=== PATIENT | male | born 1970 | race Caucasian/White ===

== ENCOUNTER 2016-12-19 21:46 | Emergency (ER) | payer OTHER ==
[2016-12-19 21:54] VITALS: BP 141/87; PULSE 108; RESP 18; TEMP 98.7
--- NOTE | 2016-12-19 22:09 | ED ---
Lower Extremity Injury HPI - General Chief Complaint: Extremity Injury, Lower Stated Complaint: ankle injury Time Seen by Provider: 12/19/16 22:02 Source: patient, RN notes reviewed Mode of arrival: ambulatory Limitations: no limitations - History of Present Illness Initial Comments: 46-year-old male presents emergency Department chief complaint left ankle pain. Patient states that he was lifting someone else and states that he felt his leg snap. Patient had 2 prior fractures to his left ankle. Patient states [facility] Patient states pain is very unbearable at this time. Patient states that he has no paresthesias. He has no proximal lower leg pain. Patient denies any other injuries at this time. - Related Data Previous Rx's Medication Instructions Recorded HYDROcodone/APAP 7.5-325MG [[place] 1 tab PO Q6HR PRN #20 tab 12/19/16 7.5-325] Allergies Allergy/AdvReac Type Severity Reaction Status Date / Time No Known Allergies Allergy Verified 12/19/16 21:53 Review of Systems ROS Statement: Those systems with pertinent positive or pertinent negative responses have been documented in the HPI. ROS Other: All systems not noted in ROS Statement are negative. Past Medical History Past Medical History: Hypertension History of Any Multi-Drug Resistant Organisms: None Reported Past Surgical History: No Surgical Hx Reported Past Psychological History: No Psychological Hx Reported Smoking Status: Current every day smoker Past Alcohol Use History: Occasional Past Drug Use History: None Reported General Exam Limitations: no limitations General appearance: alert, in no apparent distress Respiratory exam: Present: normal lung sounds bilaterally. Absent: respiratory distress, wheezes, rales, rhonchi, stridor Cardiovascular Exam: Present: regular rate, normal rhythm, normal heart sounds. Absent: systolic murmur, diastolic murmur, rubs, gallop, clicks Extremities exam: Present: other (Left lower extremity pedal pulses equal bilaterally Keppra for less than 2 seconds there is obvious deformity and moderate swelling to left ankle with severe tenderness there is no proximal tib- fib tenderness) Course Vital Signs 12/19/16 21:50 Temperature 98.7 F Pulse Rate 108 H Respiratory 18 Rate Blood Pressure 141/87 O2 Sat by Pulse 100 Oximetry Procedures - Orthopedic Splinting/Casting Injury #1 Side: left Lower Extremity Injury Location: ankle Lower Extremity Immobilizer: posterior splint (Short leg neurovascular intact before and after procedure) Other Orthopedic Equipment: crutches Medical Decision Making - Medical Decision Making 46-year-old male presented for left ankle injury. Patient has a left ankle fracture with mild disruption of the mortise. Patient is splinted and follow up with orthopedics. Return parameters discussed. Disposition Clinical Impression: Ankle fracture, left Disposition: HOME SELF-CARE Condition: Stable Instructions: Ankle Fracture (ED) Additional Instructions: Please return to the Emergency Department if symptoms worsen or any other concerns. Prescriptions: HYDROcodone/APAP 7.5-325MG [[place] 7.5-325] 1 tab PO Q6HR PRN #20 tab PRN Reason: Pain Referrals: Keren Carrasquillo MD [Primary Care Provider] - 1-2 days Jose Cabrera MD [Medical Doctor] - 1-2 days Time of Disposition: 22:43
--- NOTE | 2016-12-19 22:32 | XR ---
EXAM: XR Left Ankle Complete, 3 or More Views CLINICAL HISTORY: Reason: Pain/deformity TECHNIQUE: Frontal, lateral and oblique views of the left ankle. COMPARISON: None. FINDINGS: Bones/joints: Acute non-comminuted mildly inferomedially displaced fracture of the medial malleolus is seen. Acute non-comminuted mildly inferolaterally displaced fracture of the lateral malleolus/distal fibula is seen. The ankle mortise is not congruent. Likely small ankle joint effusion is noted. Soft tissues: Associated overlying soft tissue swelling is noted. IMPRESSION: Acute non-comminuted mildly displaced fractures involving the medial and lateral malleoli, as described above. Associated overlying soft tissue swelling. The ankle mortise is not congruent. Probable small ankle joint effusion.
[2016-12-19] MEDS ORDERED: HYDROcodone/APAP 7.5-325MG 1 EACH TAB PO ONE ×2 (22:40→22:41)
== END 2016-12-19 22:45 | disposition home or self-care (01) ==
LOC: EC 21:46
DX: S82.842A Displaced bimalleolar fracture of left lower leg, initial encounter for closed fracture (principal); F17.200 Nicotine dependence, unspecified, uncomplicated; X50.0XXA Overexertion from strenuous movement or load, initial encounter
CPT/HCPCS: 29515; 99283

== ENCOUNTER 2017-01-07 06:07 | Day surgery (SDC) | payer SELFPAY ==
[2017-01-04 13:17] VITALS: BMI 28.2
[~2017-01-07 06:07] MED LIST: DEXAMETHASONE SOD PHOSPHATE 10 MG/ML 1 ML VIAL IV ONE; LACTATED RINGERS 1,000 ML IV SCH; LIDOCAINE 1% 20 ML VIAL (10MG/ML) FOR IV START INTRADERMA PRN; MIDAZOLAM 2 MG/2 ML VIAL IV PRN; ONDANSETRON 4 MG/2 ML VIAL IVP ONE; SCOPOLAMINE 1.5MG/72HR PATCH TRANSDERM ONE; ceFAZolin 2 GM in SODIUM CHLORIDE 0.9% 100 ML IVPB ONE
[2017-01-07] MEDS ORDERED: ePHEDrine SULFATE/0.9% NACL/PF 50 MG/5 ML SYRINGE IV ONE (07:26)
[2017-01-07] MEDS ORDERED: PROPOFOL 10 MG/ML 20 ML VIAL IV ONE (07:26)
[2017-01-07] MEDS ORDERED: ePHEDrine 50 MG/ML 1 ML AMP ONE (07:26)
[2017-01-07] MEDS ORDERED: SUCCINYLCHOLINE CHLORIDE 100 MG/5 ML SYR IV ONE (07:26)
[2017-01-07] MEDS ORDERED: LIDOCAINE 1% INJ 10MG/ML (20 ML MDV) ONE (07:26)
[2017-01-07] MEDS ORDERED: fentaNYL (PF) 50 MCG/ML 2 ML AMP ONE (07:26)
[2017-01-07] MEDS ORDERED: HYDROmorphone (PF) 1 MG/ML ONE (07:26)
[2017-01-07] MEDS ORDERED: MIDAZOLAM 2 MG/2 ML VIAL ONE (07:26)
[2017-01-07] MEDS ORDERED: ceFAZolin 1,000 MG in SODIUM CHLORIDE 0.9% 1,000 ML IRRIGATION ONE (07:53)
[2017-01-07] MEDS ORDERED: LACTATED RINGERS 1,000 ML IV ONE (09:02)
[2017-01-07] MEDS: HYDROmorphone 1 MG/ML 1 ML SYRINGE IVP PRN ×2 (09:17→09:22)
[2017-01-07 09:22] VITALS: TEMP 97.3
--- NOTE | 2017-01-07 09:22 | FL ---
EXAMINATION TYPE: FL guidance operating room, XR ankle limited LT DATE OF EXAM: 01/07/2017 CLINICAL HISTORY: Left ankle bimalleolar fracture TECHNIQUE: Fluoroscopy. Limited intraoperative views left ankle. COMPARISON: None. FINDINGS: Fluoroscopic guidance was provided during open reduction internal fixation procedure perfo rmed by Dr. Cabrera. A total of 18 seconds of fluoroscopic time was utilized during the procedure a nd 4 spot intraoperative images are acquired. Intraoperative images acquired show placement lateral fixating plate through distal fibular fracture with old fracture deformity proximally redemonstrated and fixating screw through medial malleolus fra cture. Improved alignment is seen after reduction and fixation. IMPRESSION: As Above.
--- NOTE | 2017-01-07 09:26 | P.OP ---
Date of Procedure: 01/07/17 Preoperative Diagnosis: 1. Closed left bimalleolar ankle fracture 2. Current every day cigarette smoker Postoperative Diagnosis: Same Procedure(s) Performed: 1. Open reduction and internal fixation of left bimalleolar ankle fracture 2. Manual application of joint stress by physician for radiography Implants: Anesthesia: JEFFRYA Surgeon: Jose Cabrera Drum Loader And Unloader #1: Rubens Gonzalez Estimated Blood Loss (ml): 20 IV fluids (ml): 850 Pathology: none sent Condition: stable Disposition: PACU Indications for Procedure: The patient is a 46-year-old male with a medical history significant for smoking cigarettes. He sustained an isolated injury to his left ankle resulting in a bimalleolar ankle fracture. He previously had a high Marcus C fibula fracture managed nonoperatively by one of my partners. I met the patient in the office and when his swelling had resolved we discussed proceeding with surgery due to the unstable nature of his fracture. We discussed potential risks and complications of surgery including but not limited to risk of anesthesia, risk of superficial infection, risk of deep infection, risk of delayed wound healing, risk of wound necrosis, risk of damage to local sensory nerves resulting in temporary or permanent numbness, risk of intraoperative fracture, risk of postoperative fracture, risk of postoperative displacement requiring further surgery, risk of fracture nonunion , risk of fracture malunion, risk of chronic pain, risk of chronic swelling, risk of complication regional pain syndrome, risk of post hematocrit arthritis, risk of difficulty ambulating following surgery, risk of inability to regain preinjury level of function, risk of postoperative medical problems including DVT and fatal pulmonary embolus, risk of generalized to satisfaction with surgery, and possibly loss of life or limb. The patient understands that while these are the most common complications other less common complications are possible. He also understands that he is at a higher risk of having a complication due to his current smoking. He gave both verbal and written consent to go forward with surgery in the office. Operative Findings: Description of Procedure: The patient was identified in preoperative holding and the correct left leg was marked with my initials. I reviewed the consent form with the patient and his mom. All of their questions were answered. The patient was then brought back to the operating room by anesthesia. He was positioned on the operating room table and a general anesthetic and preoperative antibiotics were administered. A tourniquet was applied to the proximal aspect of the left thigh. A bump was placed under his left buttock internally rotating the leg. The right leg was secured to the table with foam tape and foam. A ramp was placed under the left leg. The patient's left leg was then prepped and draped in the standard sterile fashion. Prior to starting surgery timeout was performed identifying the correct patient, operative extremity, and procedure. The patient's leg was then elevated, exsanguinated with an Esmarch bandage, and the tourniquet was inflated to 250 mmHg. I began by outlining an incision over the lateral aspect of the distal fibula. Skin incision was made a 15 blade scalpel and dissection was carried down carefully through the subcutaneous tissue to the periosteum overlying the distal fibula and fascia over the peroneal musculature. This was incised longitudinally in line with the skin incision. The fracture was exposed. Consolidating hematoma and early callus was debrided. The fracture was then gently reduced with longitudinal traction and rotation. Once the fracture appeared to be out to length it was clamped with a uhymq-ce-rtwqu reduction clamp. Medically the fracture appeared to be anatomically reduced. C-arm fluoroscopy was brought in to verify reduction of the fracture. The fibula appeared to be out to length and the medial clear space was reduced. I then placed a 6-hole one third tubular plate along the posterior lateral border of the fibula to use as an anti-glide device. A 3.5 screw was placed in the third hole of the plate just proximal to the fracture bring the plate down to bone. A second 3.5 mm screw was placed in the first hole of the plate. I then placed a third 3.5 screw in the sixth hole of the plate capturing the distal fragment. I then placed a 2.7 mm lag screw through the fifth hole of the plate. A 2.7 mm drill bit was used to create a gliding hole in the posterior cortex the distal fragment and a 2.0 mm drill bit was used to create a threaded hole in the anterior cortex of the proximal fragment. A fully threaded 2.7 mm screw was placed through the fifth hole of the plate generating excellent compression across the fracture. Fluoroscopy was then brought in to verify the reduction of the fracture and placement of the hardware. Clinically the plate sat nicely on the posterior border of the fibula. Attention was then turned to the medial malleolus. A longitudinal incision centered over the medial malleolus was made with a skin marker. Skin incision was made a 15 blade scalpel and dissection was carried down carefully to subcutaneous tissue. The fracture was identified and the periosteum was elevated. Early callus was debrided. I was able to visualize the medial aspect of the joint and there was no obvious damage to the talar articular cartilage or loose bodies. A 2.0 mm drill bit was used to create a hole in the distal metaphysis of the tibia just proximal to the fracture. Using a point-to- point reduction clamp 1 marybel was placed in this hole and the second marybel was placed at the tip of the medial malleolus fragment. I gently reduced the medial malleolus fragment. The fragment was very small and of poor bone quality. Due to the size of the fragment I was only able to place a single 2.7 mm screw. A 2.0 mm drill bit was used to create a track for a fully threaded 2.7 mm screw measuring 55 mm in length. Fluoroscopy was then brought in to take final x-ray shots. A mortise view and lateral view showed the talus anatomically reduced within the ankle mortise. A manual external rotation stress x-ray showed no widening of the medial clear space or syndesmosis. I interpreted this as a stable ankle not requiring a syndesmotic screw. Both wounds were then copiously irrigated. The deep fascia over the fibula was closed with a running 2-0 Vicryl. The subcu was closed with 2-0 Vicryl. The skin was closed using 3-0 nylon Allgower modification of the Donati stitch. The medial incision was closed with 2-0 Vicryl in the subcutaneous tissue and 3- 0 nylon horizontal mattress stitches for the skin. I verified that all instrument, sponge, and sharp counts were correct. A sterile dressing consisting of quarter inch Brown stretchy Steri-Strips, Betadine soaked Adaptic , and 4 x 4's applied. The leg was wrapped with a web roll. The drapes were taken down and a very well-padded bulky Delgado type splint was applied. The patient was then awoken from his anesthetic, transferred from the operating room table to the [facility], and brought to PACU having marybel of the procedure well. Rubens Tabares PA-C was required is a skilled library assistant for patient positioning, surgical exposure, fracture reduction, placement of hardware, closure of surgical wound, and application of splint. Plan: The patient is going to discharge home as an outpatient. He is to remain strictly nonweightbearing on his left leg. He is to keep his splint on at all times. He is given a prescription for pain medication. He was also given a prescription for aspirin twice a day to take for DVT prophylaxis. I also recommended early mobilization. Weeks for splint removal, likely suture removal , and x-rays of the left ankle.
[2017-01-07] MEDS: MEPERIDINE 50 MG/ML SYRINGE IVP ONE ×2 (09:31→10:08)
[2017-01-07 09:34] VITALS: RESP 16
[2017-01-07] MEDS ORDERED: HYDROcodone/APAP 10-325MG 1 EACH TAB PO ONE (10:40)
[2017-01-07 11:05] VITALS: BP 130/90; PULSE 120
== END 2017-01-07 11:21 | disposition home or self-care (01) ==
LOC: OR 06:07
PROVIDERS: ATTEND Orthopaedic Surgery
DX: S82.842A Displaced bimalleolar fracture of left lower leg, initial encounter for closed fracture (principal); X58.XXXA Exposure to other specified factors, initial encounter; I10 Essential (primary) hypertension; F17.210 Nicotine dependence, cigarettes, uncomplicated; Z87.09 Personal history of other diseases of the respiratory system; Z79.82 Long term (current) use of aspirin; Z79.891 Long term (current) use of opiate analgesic; Z79.899 Other long term (current) drug therapy
CPT/HCPCS: 73600; 27814; C1713; J2250; J1100; J2175; J0690 ×2; J2405; J2001; J3010; J1170; J0330; J2704

== ENCOUNTER 2019-10-16 08:13 | Emergency (ER) | payer BC ==
[2019-10-16 08:18] VITALS: BP 160/93; PULSE 116; RESP 18; TEMP 98.1
--- NOTE | 2019-10-16 08:30 | ED ---
General Adult HPI - General Chief complaint: Extremity Injury, Upper Stated complaint: Right arm injury Time Seen by Provider: 10/16/19 08:18 Source: patient, RN notes reviewed, old records reviewed Mode of arrival: ambulatory Limitations: no limitations - History of Present Illness Initial comments: Patient is a 49-year-old male who presents emergency department today with right shoulder and clavicle pain and right wrist pain. Patient reports that he fell down the stairs on Wednesday. Patient complains of swelling and bruising noted over the clavicle. He reports pain with range of motion of the head. He also complains of some tenderness over the right scaphoid region of his wrist. Patient reports that he is right-handed. He denies any other complaints at this time including chest pain or abdominal pain. Patient reports that he has no headache, denies loss consciousness. - Related Data Home Medications Medication Instructions Recorded Confirmed amLODIPine BESYLATE/BENAZEPRIL 1 cap PO DAILY 01/07/17 01/07/17 [Lotrel 5-10 mg Capsule] Previous Rx's Medication Instructions Recorded HYDROcodone/APAP 7.5-325MG [[place] 1 tab PO Q6HR PRN #20 tab 12/19/16 7.5-325] Aspirin 325 mg PO BID #60 tab 01/07/17 Docusate [Colace] 100 mg PO BID #60 capsule 01/07/17 HYDROcodone/APAP 10-325MG [[place] 1 tab PO Q4HR PRN #60 tab 01/07/17 10-325] HYDROcodone/APAP 5-325MG [[place] 1 tab PO Q6HR PRN #10 tab 10/16/19 5-325] Allergies Allergy/AdvReac Type Severity Reaction Status Date / Time No Known Allergies Allergy Verified 10/16/19 08:17 Review of Systems ROS Statement: Those systems with pertinent positive or pertinent negative responses have been documented in the HPI. ROS Other: All systems not noted in ROS Statement are negative. Past Medical History Past Medical History: Hypertension Additional Past Medical History / Comment(s): Sinus issues. History of Any Multi-Drug Resistant Organisms: None Reported Past Surgical History: Tonsillectomy Additional Past Surgical History / Comment(s): Ear Tubes Past Anesthesia/Blood Transfusion Reactions: No Reported Reaction Past Psychological History: No Psychological Hx Reported Smoking Status: Current every day smoker Past Alcohol Use History: Occasional Past Drug Use History: None Reported - Past Family History Mother Family Medical History: No Reported History Father Family Medical History: Coronary Artery Disease (CAD) General Exam - General Exam Comments Initial Comments: 49 year old male, no distress. Limitations: no limitations General appearance: alert, in no apparent distress Head exam: Present: atraumatic, normocephalic, normal inspection Eye exam: Present: normal appearance, PERRL, EOMI. Absent: scleral icterus, conjunctival injection, periorbital swelling ENT exam: Present: normal exam, mucous membranes moist Neck exam: Present: normal inspection Respiratory exam: Present: normal lung sounds bilaterally. Absent: respiratory distress, wheezes, rales, rhonchi, stridor Cardiovascular Exam: Present: regular rate, normal rhythm, normal heart sounds. Absent: systolic murmur, diastolic murmur, rubs, gallop, clicks GI/Abdominal exam: Present: soft, normal bowel sounds. Absent: distended, tenderness, guarding, rebound, rigid Right Shoulder Exam: Present: ecchymosis, deformity, erythema, tenderness over AC joint. Absent: normal inspection, full ROM (Unable to extend or abduct greater than 90.) Upper Arm exam: Present: normal inspection, full ROM Elbow exam: Present: normal inspection, full ROM Forearm Wrist exam: Present: full ROM, tenderness over anatomical snuff box, pain with axial thumb loading. Absent: normal inspection Hand Wrist exam: Present: normal inspection, full ROM Vascular: Present: normal capillary refill Back exam: Present: normal inspection Neurological exam: Present: alert, oriented X3, CN II-XII intact Psychiatric exam: Present: normal affect, normal mood Skin exam: Present: warm, dry, intact, normal color. Absent: rash Course Vital Signs 10/16/19 08:15 Temperature 98.1 F Pulse Rate 116 H Respiratory 18 Rate Blood Pressure 160/93 O2 Sat by Pulse 100 Oximetry Procedures - Orthopedic Splinting/Casting Injury #1 Side: right Upper Extremity Injury Location: clavicle, shoulder, hand Upper Extremity Immobilizer: thumb spica, Jarod wrap, synthetic pre-padded splint Medical Decision Making - Medical Decision Making 49-year-old male presents emergency department today for evaluation for shoulder pain after falling on the stairs 2 days ago. At this time Patient has evidence of significant contusion of the shoulder. Range of motion of the head. X-ray shows evidence of a distal clavicle fracture. Patient was placed in a sling and advised to follow-up with orthopedic is neurovascularly intact. Some wrist pain and is also tenderness of the snuffbox. Wrist x-ray shows no fracture however with tenderness and mechanism of fall we'll still splinted in a thumb spica. Patient is agreeable to treatment plan will comply. - Radiology Data Radiology results: report reviewed Wrist x-ray shows no evidence of fracture. Evidence of oblique fracture of the distal clavicle with 2.5 mm displacement. Disposition Clinical Impression: Clavicle fracture, Scaphoid fracture of wrist Disposition: ADMITTED IP TO THIS [facility] Condition: Stable Instructions (If sedation given, give patient instructions): Clavicle Fracture (ED) Additional Instructions: Patient is a follow-up with business office specialist. Remain in the sling. Using an temperature pain medicine as prescribed. Return to ED if any alarming signs or symptoms occur. Prescriptions: HYDROcodone/APAP 5-325MG [[place] 5-325] 1 tab PO Q6HR PRN #10 tab PRN Reason: Pain Is patient prescribed a controlled substance at d/c from ED?: Yes If prescribed controlled substance>3 days was MAPS reviewed?: Prescribed <3 Days If opioid is for acute pain is fill amount 7 days or less?: Yes If Rx opioid, was Start Talking consent form obtained?: Yes Referrals: Keren Carrasquillo MD [Primary Care Provider] - 1-2 days Earl Balderas PAC [PHYSICIAN FOUNDATION COORDINATOR] - 1-2 days Time of Disposition: 09:31
--- NOTE | 2019-10-16 08:53 | XR ---
EXAMINATION TYPE: XR shoulder complete RT, XR clavicle RT DATE OF EXAM: 10/16/2019 CLINICAL HISTORY: pain TECHNIQUE: Three views of the right shoulder are obtained. 2 views of the right clavicle are also calle bmitted. COMPARISON: None FINDINGS: Oblique fracture distal clavicle with 2.5 mm displacement. AC joint is intact. Proximal hum erus and visualized scapula are intact. The acromioclavicular and glenohumeral joint spaces appear wi thin normal limits. The visualized ribs are intact and unremarkable. IMPRESSION: 1. Oblique fracture distal clavicle with 2.5 mm displacement. ICD 10 closed FRACTURE, INITIAL EVALUATION
--- NOTE | 2019-10-16 08:54 | XR ---
EXAMINATION TYPE: XR wrist complete RT DATE OF EXAM: 10/16/2019 CLINICAL HISTORY: pain TECHNIQUE: Frontal, lateral and oblique images of the right wrist are obtained. Navicular views also submitted. COMPARISON: None. FINDINGS: There is no acute fracture/dislocation evident. The joint spaces appear within normal limits. The o verlying soft tissue appears unremarkable. IMPRESSION: There is no acute fracture or dislocation seen. ICD 10 NO FRACTURE, INITIAL EVALUATION
== END 2019-10-16 09:45 | disposition other institution (70) ==
LOC: EC 08:13
DX: S42.031A Displaced fracture of lateral end of right clavicle, initial encounter for closed fracture (principal); S92.251A Displaced fracture of navicular [scaphoid] of right foot, initial encounter for closed fracture; I10 Essential (primary) hypertension; F17.200 Nicotine dependence, unspecified, uncomplicated; Z79.899 Other long term (current) drug therapy; W10.9XXA Fall (on) (from) unspecified stairs and steps, initial encounter; Y92.009 Unspecified place in unspecified non-institutional (private) residence as the place of occurrence of the external cause
CPT/HCPCS: 29125; 99284

== ENCOUNTER → 2022-01-12 | Outpatient (CLI) | payer BC ==
--- NOTE | 2022-01-12 15:54 | XR ---
EXAMINATION TYPE: XR soft tissue neck DATE OF EXAM: 01/12/2022 COMPARISON: None HISTORY: MRI clearance Piece of hammer in the right-sided neck. TECHNIQUE: Soft tissue neck examination in 2 projections. FINDINGS: There is a metallic foreign body at the level of C7-T1 in the frontal projection. This is a nterior on the lateral projection. His could be in the proximity to the carotid vessels. IMPRESSION: 1. Contraindication to MRI, metallic foreign body within the lower neck.
--- NOTE | 2022-01-12 15:58 | XR ---
EXAMINATION TYPE: XR orbit complete bilateral DATE OF EXAM: 01/12/2022 COMPARISON: None HISTORY: MRI clearance, history of metal shards in eye TECHNIQUE: Orbits are examined in 3 projections. FINDINGS: No metallic foreign bodies in or about the orbits are evident. IMPRESSION: 1. Contraindication to MRI within the anterior neck. Please see soft tissue neck report same date. 2. No metallic foreign bodies within or around the orbits.
== END | disposition home or self-care (01) ==
LOC: RADMRIMAIN 15:04
PROVIDERS: ATTEND Otolaryngology
DX: Z18.10 Retained metal fragments, unspecified (principal); H93.19 Tinnitus, unspecified ear
CPT/HCPCS: 70200; 70360

== ENCOUNTER → 2022-02-02 | Outpatient (CLI) | payer BC ==
--- NOTE | 2022-02-02 14:50 | CT ---
EXAMINATION TYPE: CT brain wo/w con DATE OF EXAM: 02/02/2022 COMPARISON: Hearing loss HISTORY: Headache, hearing loss. CT DLP: 2321 mGycm Automated exposure control for dose reduction was used. CONTRAST: CT scan of the head is performed with IV Contrast, patient injected with 125 mL of Isovue 300. FINDINGS: There is no abnormal enhancing mass or midline shift identified. The ventricles and sulci are within normal limits in size. The globes are intact and the visualized sinuses are clear. Craniocervical j unction maintained. Sella turcica has a normal appearance. There is ectasia of the vertebrobasilar sy stem. Following contrast administration no pathologic enhancement. Mild prominence of the basilar tip . IMPRESSION: 1. 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 2. No acute intracranial process.
--- NOTE | 2022-02-02 14:52 | CT ---
EXAMINATION TYPE: CT iac w con DATE OF EXAM: 02/02/2022 COMPARISON: None HISTORY: Headache, hearing loss. CT DLP: 142.70 mGycm Automated exposure control for dose reduction was used. CONTRAST: CT scan of the IACs is performed with IV Contrast, patient injected with 125 mL of Isovue 300. FINDINGS: The external auditory canals are patent bilaterally. Mastoid air cells show no evidence of abnormal opacification bilaterally. The middle ear ossicles are symmetric and unremarkable. There is no evidence of suspicious surrounding soft tissue density to suggest cholesteatoma. The scutum is preserved bilaterally. The cochlea and the semicircular canals are symmetric and unremarkable. Ves tibular aqueduct and internal carotid canal appear unremarkable. Temporomandibular joints are mainta ined bilaterally. IMPRESSION: No significant abnormality seen to account for patient's symptoms.
== END | disposition home or self-care (01) ==
LOC: RADCTMAIN 13:44
PROVIDERS: ATTEND Otolaryngology
DX: H91.90 Unspecified hearing loss, unspecified ear (principal); R51.0 Headache with orthostatic component, not elsewhere classified
CPT/HCPCS: 70481; 70470; Q9967